=== PATIENT | female | born 1945 ===

== ENCOUNTER 2018-08-03 07:35 | Outpatient (CLI) | payer OTHER | END 2018-08-03 07:42 | disposition home or self-care (01) | LOC: TOM 07:35 | DX: R19.5 Other fecal abnormalities (principal); K56.600 Partial intestinal obstruction, unspecified as to cause; K63.5 Polyp of colon ==

== ENCOUNTER 2022-10-07 07:32 | Outpatient (CLI) | payer OTHER | END 2022-10-07 07:38 | disposition home or self-care (01) | LOC: TOM 07:32 | PROVIDERS: ATTEND Internal Medicine Gastroenterology | DX: R19.5 Other fecal abnormalities (principal); K56.600 Partial intestinal obstruction, unspecified as to cause; Z86.010 Personal history of colon polyps ==